=== PATIENT | male | born 1975 | race Caucasian/White ===

== ENCOUNTER 2023-04-17 07:00 | Day surgery (SDC) | payer OTHER ==
--- NOTE | 2023-04-09 13:16 | NUR ---
PHONE PRE ADMIT, LEFT STAN AT [facility] FOR HIM TO DIRECTOR DIVERSITY TO SHOWER WITH BEFORE SURGERY.
[~2023-04-17] VITALS: Ht 182.9 cm; Wt 86.4 kg
[2023-04-17 07:15] VITALS: BP 137/85
--- NOTE | 2023-04-17 07:22 | NUR ---
DC CRITERIA ARE REVIEWED WITH PT AND
[2023-04-17] MEDS ORDERED: HYDROCODON-ACE1 EA10 PO (10:32)
[2023-04-17] MEDS ORDERED: DICLOFENAC SODI75 MG PO (10:32)
--- NOTE | 2023-04-17 10:38 | NUR ---
04/17/23 Jasmin Sánchez PT TO PACU SLEEPING ORAL AIRWAY IN PLACE, O2 VIA MASK FOGGING NOTED IN MASK.
[2023-04-17 11:09] VITALS: BP 132/78
--- NOTE | 2023-04-17 11:19 | NUR ---
1110: PATIENT BACK IN DAY SURGERY ROOM FROM PACU. DENIES PAIN. LEFT KNEE DRESSING CLEAN, DRY AND INTACT. LEFT LEG ELEVATED. ICE PACK TO LEFT KNEE. IV SITE WNL. VS CHECKED. CMS TO LEFT TOES WNL. TOLERATED WATER. SCD TO RIGHT LEG. CALL LIGHT WITHIN REACH. AT BEDSIDE.
[2023-04-17 12:00] VITALS: BP 132/70
--- NOTE | 2023-04-17 13:04 | NUR ---
1200: VS CHECKED. DENIES PAIN. LEFT KNEE DRESSING CDI. CMS TO LEFT TOES WNL. TOLERATED WATER. DECLINED SOMETHING TO EAT. IV SALINE LOCKED. STAND BY ASSIST WHILE PATIENT GOT OOB AND WALKED AROUND ROOM. GAIT STEADY. GETTING DRESSED WITH HELP FROM . 1220: PATIENT WALKED INDEPENDENTLY TO BATHROOM. STATES NO DIFFICULTY VOIDING. GAIT STEADY. 1230: DISCHARGED INSTRUCTIONS GIVEN TO PATIENT AND . IV DC'D WNL. TIP INTACT. DRESSING APPLIED. PATIENT DISCHARGED TO HOME WITH VIA WHEELCHAIR.
--- NOTE | 2023-04-20 06:55 | OR ---
[facility] [address] [place], [place] [address] Signed DATE OF OPERATION: 04/17/2023 SURGEON: Leyda Torres MD PREOPERATIVE DIAGNOSIS: Medial meniscus tear, left knee. POSTOPERATIVE DIAGNOSIS: Medial meniscus tear, left knee. PROCEDURE PERFORMED: Left knee arthroscopy with partial medial meniscectomy. PREASSEMBLER AND INSPECTOR: None. ANESTHESIA: General. BLOOD LOSS: Minimal. BRIEF HISTORY: Kashif is a 47-year-old gentleman with pain and locking in his knee. MRI was consistent with a very large posteromedial meniscus tear. Risks and benefits of operative treatment were discussed with him. He elected to proceed. Once consent was obtained, he was taken to the operating room. After adequate anesthesia, he was placed on the operating room table. All downside pressure points were well padded. The right leg was flexed, abducted, and externally rotated on a leg beckham. The left was placed in a well-padded leg beckham proximally with no tourniquet. The leg was then prepped and draped in a standard sterile fashion. The portal sites were injected using 0.25% Marcaine with epinephrine. The standard inferolateral and superolateral portals were made. The scope was introduced into the knee. ARTHROSCOPIC FINDINGS: The chondral surfaces were intact throughout his knee. ACL and PCL were intact. The patella tracked well. Medial and lateral gutters were clear. Lateral meniscus was intact throughout. Medial meniscus showed a complex tear with a primary horizontal component from posterior horn all the way to the mid medial body. Electronically Signed By: LEYDA TORRES MD 04/20/23 0655 PATIENT NAME: KASHIF BABCOCK OPERATIVE REPORT DATE OF : 77 REPORT #: [id number] PHYSICIAN: LEYDA TORRES MD PCP: KAY SKAGGS REPORT IS CONFIDENTIAL AND NOT TO BE RELEASED WITHOUT AUTHORIZATION [facility] [address] [place], [place] [address] Signed DESCRIPTION OF OPERATION: Standard inferomedial portal was made after localization using a spinal needle. The straight and curved biters were then used to trim the meniscus tear back to a stable rim leaving a small rim circumferentially. This was then smoothed using shaver and all debris was evacuated. The scope was then withdrawn. Portals were closed with 3-0 nylon and the knee was injected with 60 mg of Toradol. The wounds were dressed with Adaptic, ABD, and Logan wrap. He tolerated the procedure well. All sponge, needle, and instrument counts were correct. Leyda Torres MD BA/MICAELAL /[id number] Copies: ~ Electronically Signed By: LEYDA TORRES MD 04/20/23 0655 PATIENT NAME: KASHIF BABCOCK OPERATIVE REPORT DATE OF : 77 REPORT #: [id number] PHYSICIAN: LEYDA TORRES MD PCP: KAY SKAGGS REPORT IS CONFIDENTIAL AND NOT TO BE RELEASED WITHOUT AUTHORIZATION
== END 2023-04-17 12:30 | disposition home or self-care (01) ==
LOC: DS 07:00
PROVIDERS: ATTEND Specialist
PROC: 0SBD4ZZ Excision of Left Knee Joint, Percutaneous Endoscopic Approach (ICD-10-PCS; principal; 2023-04-17 10:15)
DX: S83.242A Other tear of medial meniscus, current injury, left knee, initial encounter (principal)
CPT/HCPCS: 01400; J0131; J0690; J1100; J1885; J2001; J2250; J2405; J2704; J2765; J3490; J7121

== ENCOUNTER 2024-03-30 17:00 | Emergency (ER) | payer OTHER ==
[~2024-03-30] VITALS: Ht 182.9 cm; Wt 90.3 kg
[~2024-03-30 17:00] MED LIST: DICLOFENAC SODI75 MG PO; HYDROCODON-ACE1 EA10 PO
[2024-03-30] MEDS ORDERED: CREATINE100 GM PO (17:15)
[2024-03-30] MEDS ORDERED: DIPHTH,PERTUSS(ACELL),TET VAC 0.5 ML SYRINGE IM ONE (19:15)
[2024-03-30] MEDS ORDERED: HYDROCODONE BIT/ACETAMINOPHEN 5/325 MG 1 TAB HOME.PACK PO ONE (19:15)
[2024-03-30] MEDS ORDERED: HYDROCODON-ACE1 EA10 PO (19:20)
[2024-03-30 20:25] VITALS: BP 130/83
== END 2024-03-30 20:25 | disposition home or self-care (01) ==
LOC: ED 17:00
DX: S52.592A Other fractures of lower end of left radius, initial encounter for closed fracture (principal); Z79.899 Other long term (current) drug therapy; W18.09XA Striking against other object with subsequent fall, initial encounter
CPT/HCPCS: 29125; 73080; 73110; 90471; 90715; 99283-25; A9270